=== PATIENT | male | born 1995 | race Caucasian/White ===

== ENCOUNTER → 2017-04-26 | Outpatient (CLI) | payer BC ==
--- NOTE | 2017-04-30 12:06 | RAD ---
HISTORY: 22-year-old male with left shoulder pain. Study: Three-view cervical spine. Comparison: None. Findings: AP and lateral radiographs of the cervical spine demonstrate normal alignment from the craniocervical junction to the level of C7. The central canal appears patent without posterior element abnormality . No prevertebral soft tissue swelling can be identified. The odontoid appears intact. The lateral masses of C1 align with the body of C2. No radiographic evidence of acute fracture or malalignment. Lung apices are clear. IMPRESSION: 1. Unremarkable examination of the cervical spine. Reported By:
--- NOTE | 2017-04-30 12:11 | RAD ---
THORACIC SPINE RADIOGRAPHS CLINICAL HISTORY: 22-year-old male with thoracic spine pain. COMPARISON: None. FINDINGS: 2 views of the thoracic spine were obtained. No radiographic evidence of acute fracture or malalignment The cervicothoracic junction is visualized on frontal radiographs only. Considering the limitations, vertebral body height and alignment are maintained. IMPRESSION: No compression deformity or malalignment on screening thoracic spine radiographs. Reported By:
--- NOTE | 2017-04-30 12:27 | RAD ---
SHOULDER RADIOGRAPHS CLINICAL HISTORY: 22-year-old male with left shoulder pain. COMPARISON: None. FINDINGS: 3 views of the left shoulder were obtained. There is no acute fracture. The alignment is n ormal. The glenohumeral and acromioclavicular joints are congruent. There is no aggressive bone les ion or abnormal periosteal reaction. There is no soft tissue calcification or gas. The left lung ap ex is clear. IMPRESSION: Normal left shoulder radiographs. Reported By:
== END | disposition home or self-care (01) ==
LOC: RAD 12:01
PROVIDERS: ATTEND Nurse Practitioner Family
DX: M25.512 Pain in left shoulder (principal); M54.6 Pain in thoracic spine; M54.2 Cervicalgia
CPT/HCPCS: 72040; 72072; 73030